=== PATIENT | female | born 1960 | race Caucasian/White ===

== ENCOUNTER 2017-05-12 15:45 | Inpatient (IN) ==
[2017-05-12] MEDS ORDERED: SALINE FLUSH 10ml SYRINGE IVF PRN (17:55)
[2017-05-12] MEDS ORDERED: FentaNYL 100 MCG/2 ML INJECTION IVP PRN (17:55)
[2017-05-12] MEDS ORDERED: ONDANSETRON 4 MG/2 ML INJECTION IVP ONE (17:55)
--- OUTSIDE RECORDS SUMMARY | 2017-05-12 18:17 | External Medical Summary ---
:1960 Author Organization [employer] Care Team Providers Name Role Phone Kaden Hernandez Provider Role Unavailable Allergies No Known Allergies Problems Problem Type Condition Code Onset Dates Condition Status Problem Bipolar disorder, unspecified F31.9 Active Problem Post-traumatic stress disorder, F43.12 Active chronic Problem Type 2 diabetes mellitus without E11.9 Active complications Problem Essential (primary) hypertension I10 Active Problem Hyperlipidemia, unspecified E78.5 Active Problem Mixed hyperlipidemia 272.2 Active Problem COPD 496 Active Problem Gastro-esophageal reflux disease K21.9 Active without esophagitis Problem Chronic obstructive pulmonary J44.9 Active disease, unspecified Medications Medication Code System Code Instructions Start Date End Date Status Dosage [facility] [id number] 10-325 MG Orally Mar 10, 1-2 tablet 5-00 every 6 hrs, 2015 as needed Results No Known Results Summary Purpose eClinicalWorks Submission
--- NOTE | 2017-05-12 18:20 | Emergency Department Report ---
General Adult HPI - General Chief complaint: Abdominal Pain Stated complaint: Severe abd pain, pain when going to bathroom Time Seen by Provider: 05/12/17 17:53 Source: patient Mode of arrival: ambulatory Limitations: no limitations - History of Present Illness HPI narrative: 57-year-old female presents to the emergency department with a chief complaint of left adnexal pain. Patient has been having discomfort in the left adnexal region for the past 2 weeks. She was found to have a large ovarian cyst at that time. She is scheduled to have removal of the cyst this coming week with Dr. mesa. She states that her pain increased dramatically last night. She denies any trauma, travel, poorly prepared food, recent antibiotic use. She describes her pain as severe. Pain is sharp. No radiation. She does not note any exacerbating or remitting factors. No other complaints or associated symptoms. She was at home when her symptoms began. Symptoms have been persistent in nature since onset. She was referred to the emergency department by Dr. Mesa to rule out ovarian torsion. - Related Data Home Medications Medication Instructions Recorded Confirmed Gabapentin 600 mg PO BID #0 05/30/14 05/12/17 Lamictal (lamotrigine) 100 mg 200 mg PO HS tab 11/26/16 05/12/17 tablet aspirin 81 mg tablet,delayed 81 mg PO DAILY tab 12/23/16 05/12/17 release Acetaminophen [Tylenol Arthritis] 650 mg PO PRN 04/09/17 05/12/17 BuPROPion SR [Wellbutrin Sr] 200 mg PO HS 04/09/17 05/12/17 Buspirone [Buspar] 10 mg PO BID 04/09/17 05/12/17 Citalopram [Celexa] 40 mg PO DAILY 04/09/17 05/12/17 Docusate Sodium 100 mg PO DAILY 04/09/17 05/12/17 Esomeprazole [NEXIUM 20 mg Capsule] 20 mg PO DAILY 04/09/17 05/12/17 Ferrous Sulfate 325 mg PO DAILY 04/09/17 05/12/17 Loratadine [Claritin] 10 mg PO DAILY 04/09/17 05/12/17 Hydrocodone/APAP 10/325 [[place] 1 tab PO TID PRN 04/24/17 05/12/17 10/325] Oxycodone/Acetaminophen 5/325 1 tab PO Q4H PRN 05/12/17 05/12/17 [Percocet 5/325] Previous Rx's Medication Instructions Recorded Glucophage (metformin) 1,000 mg 1,000 mg PO BID #60 tab 11/08/16 tablet Klor-Con Sprinkle (potassium 10 meq PO DAILY #90 cap 12/15/16 chloride ER) 10 mEq capsule Lasix (Furosemide) 40 mg tablet 40 mg PO QAM #90 tab 12/15/16 amitriptyline 50 mg tablet 50 mg PO HS #30 tab 12/15/16 Lipitor (atorvastatin) 20 mg tablet 20 mg PO HS #30 tab 03/11/17 Benzonatate [Tessalon Perles] 200 mg PO Q8H PRN #24 cap 04/24/17 Allergies Allergy/AdvReac Type Severity Reaction Status Date / Time peach Allergy Intermediate Hives Verified 05/12/17 16:53 cephalexin Allergy Unknown Verified 05/12/17 16:53 morphine Allergy Unknown Hives Verified 05/13/17 10:17 Penicillins Allergy Unknown Verified 05/12/17 16:53 Review of Systems Constitutional: Denies: fever, chills Eyes: Denies: eye pain, vision change ENT: Denies: ear pain, throat pain Cardiovascular: Denies: chest pain, palpitations Respiratory: Denies: cough, dyspnea Gastrointestinal: Reports: abdominal pain. Denies: nausea, vomiting, diarrhea Genitourinary: Denies: urgency, dysuria Musculoskeletal: Denies: back pain, arthralgia Integumentary: Denies: erythema, rash Neurological: Denies: headache, numbness Psychiatric: Denies: anxiety, depression Endocrine: Denies: fatigue, heat or cold intolerance Hematological/Lymphatic: Denies: easy bruising, lymphadenopathy Allergic/Immunologic: Denies: facial swelling, urticaria PFSH Patient Stated Medical History Migraine Yes Valvular Heart Disease Yes Bronchitis Yes Chronic Obstructive Pulmonary Yes Disease (COPD) Diabetes Mellitus Type 2 Yes Hx Kidney Stones Yes Hx Urinary Tract Infection Yes Osteoarthritis Yes Depression Yes Polycystic Ovarian Syndrome Yes Post Menopausal No Now No Clinic Medical History (Last Reviewed 10/14/16 @ 10:29 by KYLE Shepard) PCOS (polycystic ovarian syndrome) (Acute Medical) Allergic rhinitis (Chronic Medical) Anxiety (Chronic Medical) Bipolar disorder (Chronic Medical) COPD (chronic obstructive pulmonary disease) (Chronic Medical) Depression (Chronic Medical) Diabetes (Chronic Medical) Dyslipidemia (Chronic Medical) High cholesterol (Chronic Medical) Iron deficiency anemia (Chronic Medical) Leg edema (Chronic Medical) Migraines (Chronic Medical) Mitral valve prolapse (Chronic Medical) Neuropathy (Chronic Medical) PTSD (post-traumatic stress disorder) (Chronic Medical) Vitamin B12 deficiency (Chronic Medical) Surgical History: *1982 Tubal Ligation. *1984 Medioscopey. *2004 left shoulder surgery (torn rotator cuff, chip bone). *2013 righ knee Surgery(bone chipm removed arthritis). *06/12/2016 Laparoscopic Appendectomy. *[place] Teeth Extraction Family History: Family History (Last Reviewed 10/14/16 @ 10:30 by KYLE Shepard) Maternal Grandmother Aneurysm Arthritis Stroke DVT (deep venous thrombosis) blood clots Maternal Grandfather COPD (chronic obstructive pulmonary disease) Heart attack Paternal Grandfather Arthritis Heart failure Mother High blood pressure Sister Diabetes Dementia Sister Heart attack - Social History Smoking status: Never smoker second hand exposure: Yes Substance use type: does not use Alcohol intake: current Alcohol intake frequency: a few times a month Household members: spouse Current occupational status: employed Physical Exam - Limitations Limitations: no limitations - General General appearance: alert, in no apparent distress - Normal Exams: Head:: Normocephalic without trauma Eyes:: Pupils are PERRLA w/ EOMI, No scleral icterus, irritation, or foreign bodies noted ENMT:: No facial trauma, nasal exudates, pharyngeal erythema, or exudates are noted Dental: No fractured, loose, or missing teeth noted Neck:: Full range of motion, without adenopathy, JVD, bruits or thyromegaly Chest/Respirations:: Clear all lopez, with good airflow, and symmetry bilaterally Cardiovascular:: Regular rate and rhythm, without murmur or gallop, Pulses 2+ all extremities, capillary refill, <2 seconds all extremities Abdomen:: Bowel sounds positive (is tender over the left adnexal region.), soft , non-tender (patient refused to undergo pelvic exam/vaginal swab collection for STD analysis.), non-distended, no hepatosplenomegaly, masses or bruits noted Lymphatic:: No lymphadenopathy, or lymphedema noted Musculoskeletal:: No tenderness, or deformity noted, good range of motion, all extremities Integumentary:: No rashes, hives, or bruising noted, hair and nails, without abnormality Neurological:: Patient is alert, and oriented, cranial nerves, motor/sensory/ cerebellar, exams w/o gross deficits, to observation Psychiatric:: Patient exhibits, appropriate attention, emotion and affect Course Vital Signs Temperature 98.2 F 05/12/17 15:50 Pulse Rate 112 H 05/12/17 15:50 Respiratory Rate 20 05/12/17 15:50 Blood Pressure 131/75 05/12/17 15:50 Pulse Oximetry 99 05/12/17 15:50 Temperature 98.4 F 05/13/17 10:02 Pulse Rate 82 05/13/17 13:15 Respiratory Rate 15 05/13/17 10:02 Blood Pressure 135/46 05/13/17 13:15 Pulse Oximetry 98 05/13/17 13:15 Medical Decision Making - [facility] Narrative Medical decision making narrative: Labs/imaging were discussed in detail with the patient and family and questions are answered. Patient is given gentle IV hydration. She is given parental narcotic and antiemetic medications intravenously with improvement of symptoms. Imaging is reviewed with Dr. Mesa who recommends admission to his service and he will take the patient to the operating room as ovarian torsion cannot be excluded. Dr. mesa recommends no antibiotic therapy at this time. Patient is admitted to the service of Dr. mesa in improved condition. She is in agreement with the current plan of management. No further orders from accepting physician is in agreement with the current plan of management. She refused to undergo pelvic examination and vaginal swab collection for STD analysis in the emergency department. - Differential Diagnosis ovarian cyst, ovarian torsion, ovarian mass, UTI - Lab Data Result diagrams: 05/13/17 10:15 05/12/17 18:31 Lab Results 05/12/17 05/12/17 05/12/17 Range/Units 18:31 18:31 18:31 WBC 17.7 H (4.5-11.0) T/MM3 RBC 4.00 (4.00-5.20) M/MM3 Hgb 11.1 L (12-16) GM/DL Hct 35.5 L (36-46) % MCV 88.8 (80-100) UM3 MCH 27.8 (26-34) UUG MCHC 31.3 (31-37) GM/DL RDW Std Deviation 46.9 (36.9-50.2) FL Plt Count 291 (130-400) T/MM3 MPV 10.5 (9.4-12.4) UM3 Immature Gran % (Auto) Not performed Neut % (Auto) Not performed Lymph % (Auto) Not performed [place] % (Auto) Not performed Eos % (Auto) Not performed Baso % (Auto) Not performed Neut # (Auto) Not performed Lymph # (Auto) Not performed [place] # (Auto) Not performed Eos # (Auto) Not performed Baso # (Auto) Not performed Abs Immat Gran (auto) Not performed Neutrophils % (Manual) 89.0 H (33-66) % Lymphocytes % (Manual) 5.0 L (23-45) % Monocytes % (Manual) 6.0 (0-9.0) % Neutrophils # (Manual) 15.8 H (1.8-7.7) T/MM3 Lymphocytes # (Manual) 0.9 L (1-4.8) T/MM3 Monocytes # (Manual) 1.1 H (0-0.8) T/MM3 RBC Morph Comment Normal Turbidity < 20 (0-20) Sodium 141 (134-144) MEQ/L Potassium 4.2 (3.6-5) MEQ/L Chloride 101 (98-107) MEQ/L Carbon Dioxide 28 (22-30) MEQ/L Anion Gap 12 (5-15) MEQ/L BUN 16.0 (7-17) MG/DL Creatinine 1.1 (0.7-1.2) MG/DL GFR Calculation 51 BUN/Creatinine Ratio 15 (6-26) RATIO Glucose 111 H (65-110) MG/DL Calculated Osmolality 273 (261-280) MOSM/KG Calcium 8.7 (8.4-10.2) MG/DL Total Bilirubin 1.50 H (0.20-1.30) MG/DL Icterus Index < 2 (0-7) AST 33 (14-36) U/L ALT 50 (9-52) U/L Alkaline Phosphatase 110 (38-126) U/L Total Protein 7.1 (6.3-8.2) G/DL Albumin 4.2 (3.5-5.0) G/DL Globulin 2.9 (2.4-3.6) G/DL Albumin/Globulin Ratio 1.4 (1.1-2.2) RATIO Lipase 49 (23-300) U/L Specimen Hemolysis < 15 (0-25) Ur Collection Type Cancelled Urine Color Cancelled Urine Clarity Cancelled Urine pH Cancelled Ur Specific [place] Cancelled Urine Protein Cancelled Urine Glucose (UA) Cancelled Urine Ketones Cancelled Urine Occult Blood Cancelled Urine Nitrate Cancelled Urine Bilirubin Cancelled Urine Urobilinogen Cancelled Ur Leukocyte Esterase Cancelled Urinalysis Comment Cancelled Disposition Clinical Impression: Ovarian mass Disposition: 02 To [facility] Acute Care Condition: Stable Time of Disposition: 18:45 (Admit. Dr. Mesa. ) - Seen By: physician
[2017-05-12] MEDS: NS 1,000 ML IV SCH ×2 (18:33→22:24)
[2017-05-12] MEDS ORDERED: FentaNYL 100 MCG/2 ML INJECTION IVP ONE ×2 (19:22→20:55)
[2017-05-12 19:57] VITALS: BMI 36.2
[2017-05-12] MEDS: FentaNYL 100 MCG/2 ML INJECTION IVP PRN (22:52)
[2017-05-13] MEDS: FentaNYL 100 MCG/2 ML INJECTION IVP PRN (02:09)
[2017-05-13] MEDS ORDERED: PROPOFOL 20 ML ONE (03:17)
[2017-05-13] MEDS ORDERED: ROCURONIUM 50 MG/5 ML INJECTION IVP ONE ×2 (03:17→06:26)
[2017-05-13] MEDS ORDERED: SUCCINYLCHOLINE 20mg/mL 10mL INJECTION ONE (03:17)
[2017-05-13] MEDS ORDERED: MIDAZOLAM 2mg/2ml INJECTION ONE (03:19)
[2017-05-13] MEDS ORDERED: FentaNYL 250 MCG/5 ML INJECTION ONE (03:19)
--- NOTE | 2017-05-13 03:40 | Anesthesia Preoperative Report ---
Anesthesia Preoperative Record - Date and Time Date: 05/13/17 Preoperative Diagnosis: R/O ovarian Torsion Proposed Procedure: diagnostic lap NPO Since Date: 05/12/17 NPO Since Time: 15:00 Allergies/Adverse Reactions: Allergies Allergy/AdvReac Type Severity Reaction Status Date / Time peach Allergy Intermediate Hives Verified 05/12/17 16:53 cephalexin Allergy Unknown Verified 05/12/17 16:53 morphine Allergy Unknown Verified 05/12/17 16:53 Penicillins Allergy Unknown Verified 05/12/17 16:53 - Vital Signs Vital Signs: Temperature 97.6 F 05/12/17 23:33 Pulse Rate 81 05/12/17 23:33 Respiratory Rate 16 05/12/17 23:33 Blood Pressure 107/54 05/12/17 23:33 Pulse Oximetry 98 05/12/17 23:33 Height and Weight: Height 5 ft 5 in Weight 98.8 kg Body Mass Index 36.2 - Medications Inpatient Medications: Current Medications Fentanyl (Fentanyl) 50 mcg IVP O PRN Last Admin: 05/12/17 18:36 Dose: 50 mcg Fentanyl (Fentanyl) 50 mcg IVP O ONE Stop: 05/12/17 20:56 Last Admin: 05/12/17 21:04 Dose: 50 mcg Fentanyl (Fentanyl) 50 mcg IVP Q2HR PRN PRN Reason: Pain Last Admin: 05/13/17 02:09 Dose: 50 mcg Sodium Chloride (Normal Saline) 1,000 mls @ 150 mls/hr IV .Q6H40M NIEVES Last Admin: 05/12/17 22:24 Dose: 150 mls/hr Sodium Chloride (Iv Flush) 10 - 80 ml IVF PRN PRN PRN Reason: Flushing Last Admin: 05/12/17 18:39 Dose: 10 ml Home Medications: Home Medications Medication Instructions Recorded Confirmed Type Gabapentin 600 mg PO BID #0 05/30/14 05/12/17 History Glucophage (metformin) 1,000 mg 1,000 mg PO BID #60 tab 11/08/16 05/12/17 Rx tablet Lamictal (lamotrigine) 100 mg 200 mg PO HS tab 11/26/16 05/12/17 History tablet Klor-Con Sprinkle (potassium 10 meq PO DAILY #90 cap 12/15/16 05/12/17 Rx chloride ER) 10 mEq capsule Lasix (Furosemide) 40 mg tablet 40 mg PO QAM #90 tab 12/15/16 05/12/17 Rx amitriptyline 50 mg tablet 50 mg PO HS #30 tab 12/15/16 05/12/17 Rx aspirin 81 mg tablet,delayed 81 mg PO DAILY tab 12/23/16 05/12/17 History release Lipitor (atorvastatin) 20 mg tablet 20 mg PO HS #30 tab 03/11/17 05/12/17 Rx Acetaminophen [Tylenol Arthritis] 650 mg PO PRN 04/09/17 05/12/17 History BuPROPion SR [Wellbutrin Sr] 200 mg PO HS 04/09/17 05/12/17 History Buspirone [Buspar] 10 mg PO BID 04/09/17 05/12/17 History Citalopram [Celexa] 40 mg PO DAILY 04/09/17 05/12/17 History Docusate Sodium 100 mg PO DAILY 04/09/17 05/12/17 History Esomeprazole [NEXIUM 20 mg Capsule] 20 mg PO DAILY 04/09/17 05/12/17 History Ferrous Sulfate 325 mg PO DAILY 04/09/17 05/12/17 History Loratadine [Claritin] 10 mg PO DAILY 04/09/17 05/12/17 History Benzonatate [Tessalon Perles] 200 mg PO Q8H PRN #24 cap 04/24/17 05/12/17 Rx Hydrocodone/APAP 10/325 [[place] 1 tab PO TID PRN 04/24/17 05/12/17 History 10/325] Oxycodone/Acetaminophen 5/325 1 tab PO Q4H PRN 05/12/17 05/12/17 History [Percocet 5/325] Is Patient on Beta Emma?: No - Medical History Respiratory: Reports: Bronchitis, Chronic Obstructive Pulmonary Disease (COPD) ( denies SOB at this time) DENIES: Sleep Apnea Cardiovascular: Reports: Valvular Heart Disease (MVP. asymptomatic) DENIES: Angina Gastrointestional: Reports: Gastroesophageal Reflux Disease (well controlled), Morbid Obesity Neuro/Musculoskeletal: Reports: HX.MS.OSAR, Depression Renal/Endocrine: Reports: Diabetes Mellitus Type 2 Other History: DENIES: Now - Surgical History GI Surgery/Treatments: Reports: Appendectomy Musculoskeletal Surgery/Tx: Reports: Knee Arthroscopy, Shoulder Arthroscopy ( LEFT) Reproductive Surgery/Treatment: Reports: Tubal Ligation Anesthesia Reactions: None Hx Family Anesthesia Reaction: No History of Motion Sickness: No - Social History Smoking Status: Never smoker Second Hand Exposure: Yes Substance Use Type: does not use Alcohol Intake: current Alcohol Intake Frequency: a few times a month - Physical Exam Respiratory Exam: Present: lungs clear, bilateral breath sounds equal Cardiovascular Exam: Present: regular rate and rhythm - Airway Assessment Mallampati Score: III TMD: 3 Fingerbreadths Neck Extension: fair Overall Assessment: no airway concerns - ASA ASA Score: 3 - Plan Anesthesia: General Inhalation Gases - Discussion Discussion: Discussed risks/options/alternatives of anesthesia and questions answered. Patient consents. Nursing pain assessment noted. Present for Discussion: spouse Attestation Statement: Prior to the delivery of any anesthetic medication, I examined the patient, developed the plan, obtained the patient's consent and discussed the risk and benefits of the procedure with the patient/guardian. - Additional Information Seen by Anesthesia: Yes
[2017-05-13] MEDS: LR 1,000 ML IV SCH ×6 (04:00→18:04)
[2017-05-13] MEDS ORDERED: SALINE FLUSH 10ml SYRINGE ONE ×2 (04:16→06:11)
[2017-05-13] MEDS ORDERED: PHENYLEPHRINE INJ 10 MG/ML VIAL IV ONE (04:16)
[2017-05-13] MEDS ORDERED: EPHEDRINE 50mg/ml INJECTION ONE (05:05)
[2017-05-13] MEDS ORDERED: TRANEXAMIC ACID 1,000 MG in NS 100 ML IV ONE (05:43)
[2017-05-13] MEDS: NS 1,000 ML IV SCH ×2 (05:45→10:57)
[2017-05-13] MEDS ORDERED: CEFAZOLIN 1 G INJECTION ONE (06:23)
[2017-05-13] MEDS ORDERED: CLINDAMYCIN PB 900 MG/50 ML BAG IV SCH (06:30)
[2017-05-13] MEDS ORDERED: FentaNYL 100 MCG/2 ML INJECTION IVP PRN ×2 (06:45→10:32)
[2017-05-13] MEDS ORDERED: SUGAMMADEX 200mg/2ml INJECTION IVP ONE (07:46)
[2017-05-13] MEDS ORDERED: ONDANSETRON 4 MG/2 ML INJECTION ONE (07:47)
[2017-05-13] MEDS ORDERED: DEXAMETHASONE 4 MG/ML INJECTION ONE (07:47)
[2017-05-13] MEDS ORDERED: HYDROMORPHONE 2 MG/ML INJECTION IVP PRN (07:55)
--- NOTE | 2017-05-13 08:14 | Ultrasound Report ---
Indication: pelvic pain PROCEDURE: US pelvic complete: Encounter: Initial Comparison: May 10, 2017 FINDINGS: Transabdominal pelvic imaging was performed. The uterus measures 7.9 x 4.7 x 4 cm. The parenchyma again shows a small fibroid. The endometrial stripe measures 5 mm in thickness. There is no evidence of focal endometrial mass. Enlarging left ovarian mass present measuring 7.5 x 7.4 x 8.5 cm in size. This previously measured 6.4 cm in maximal diameter. There is minimal Doppler flow present to the left ovary. The right ovary appears normal and measures 2.2 x 2.1 x 2 cm in size. IMPRESSION: Enlarging left ovarian mass could represent a torsed ovary with internal hemorrhage, endometrioma with hemorrhage, ovarian abscess or hemorrhagic neoplasm. Again surgical excision is recommended. There is a preliminary report by [facility]. .
[2017-05-13] MEDS ORDERED: ONDANSETRON 4 MG/2 ML INJECTION IVP PRN (08:30)
[2017-05-13] MEDS ORDERED: METOCLOPRAMIDE 10mg/2ml INJECTION IVP PRN (08:30)
[2017-05-13] MEDS ORDERED: MORPHINE SULFATE 4mg INJECTION IVP PRN (08:30)
--- NOTE | 2017-05-13 09:00 | OB/GYN Procedure Note ---
FRAME FIXER Operative Note Date of Operation: 05/13/17 Preoperative Diagnosis: Ovarian Cyst Comments: Ovarian torsion Postmenopausal thickened endometrium Postoperative Diagnosis: Same as Preoperative FRAME FIXER Procedure: Dx Laparoscopy, Hysteroscopy with D&C Oopherectomy: LSO Comments: Laparotomy Surgeon: Enoch Rhodes DO Supervisory Examiner: Carissa Potter MD Anesthesia Provider: Pepe Mcdaniel CRNA Anesthesia Type: General Estimated Blood Loss:: 1200
--- NOTE | 2017-05-13 09:38 | Anesthesia Postoperative Note ---
- Date and Time Date: 05/13/17 Time: 09:38 - Status Patient Participated in Evaluation: Patient Participated in Person Vital Signs: Temperature 98.4 F 05/13/17 09:25 Pulse Rate 102 H 05/13/17 09:25 Respiratory Rate 22 05/13/17 09:25 Blood Pressure 109/56 05/13/17 09:25 Pulse Oximetry 96 05/13/17 09:25 Respiratory Function: Airway Patent Cardiovascular Function: Regular Pulse EKG: Sinus Rhythm Mental Status: Alert and Oriented Pain Intensity: 3 Hydration: IV Infusing Complications During Recover: None Apparent - Follow-Up Instructions Instructions: Per Surgeon
[2017-05-13] MEDS: SIMETHICONE 80 MG CHEWABLE TABLET PO SCH ×4 (10:33→21:07)
[2017-05-13] MEDS: Oxycodone/Acetaminophen 5/325 1 TAB PO PRN ×4 (12:57→21:12)
[2017-05-13] MEDS ORDERED: BENZONATATE 200 MG CAPSULE PO PRN (16:33)
[2017-05-13] MEDS: METFORMIN 1,000 MG TABLET PO SCH (18:04)
[2017-05-13] MEDS: BUSPIRONE 10 MG TABLET PO SCH (21:07)
[2017-05-13] MEDS: BUPROPION 100 MG PO SCH (21:07)
[2017-05-13] MEDS: GABAPENTIN 300 MG CAPSULE PO SCH (21:08)
[2017-05-13] MEDS: AMITRIPTYLINE 50 MG TABLET PO SCH (21:08)
[2017-05-13] MEDS: ATORVASTATIN 20 MG TABLET PO SCH (21:11)
[2017-05-14] MEDS: LR 1,000 ML IV SCH ×3 (00:29→09:35)
[2017-05-14] MEDS: PANTOPRAZOLE 20 MG TABLET PO SCH (06:00)
[2017-05-14] MEDS: METFORMIN 1,000 MG TABLET PO SCH ×2 (09:35→17:07)
[2017-05-14] MEDS: CITALOPRAM 40 MG TABLET PO SCH (09:35)
[2017-05-14] MEDS: SIMETHICONE 80 MG CHEWABLE TABLET PO SCH ×4 (09:35→20:57)
[2017-05-14] MEDS: FERROUS SULFATE 324 MG TABLET PO SCH (09:35)
[2017-05-14] MEDS: BUSPIRONE 10 MG TABLET PO SCH ×2 (09:35→20:59)
[2017-05-14] MEDS: DOCUSATE SODIUM 100 MG CAPSULE PO SCH (09:36)
[2017-05-14] MEDS: GABAPENTIN 300 MG CAPSULE PO SCH ×2 (09:36→20:57)
--- NOTE | 2017-05-14 10:13 | OB/GYN Progress Note ---
LOG SCALER Post Op Progress Note - General POD:: POD1 Pain: controlled Pain: Her preop pain has resolved. Voiding: voiding Nausea or Vomiting: No Ambulating: Yes Subjective Comments: Passing flatus. - Objective Vital Signs: Vital Signs Temp 96.8 F 05/14/17 08:00 Pulse 97 05/14/17 08:00 Resp 16 05/14/17 08:00 BP 115/59 05/14/17 08:00 Pulse Ox 89 L 05/14/17 08:00 Urine Output: good General: alert and oriented Abdomen: soft Abdomen: Mildly distended. Incision: clean, no erythema, dry, intact Extremities: non-tender Laboratory Results: 05/13/17 10:15 05/12/17 18:31 Labs: UA Ur Collection Type Urine, void-cc/notcc 05/13/17 11:09 Urine Color Yellow (YELLOW) 05/13/17 11:09 Urine pH 6.5 (5.0-8.0) 05/13/17 11:09 Ur Specific [place] 1.025 (1.015-1.025) 05/13/17 11:09 Urine Protein Trace (NEGATIVE) A 05/13/17 11:09 Urine Glucose (UA) Negative (NEGATIVE) 05/13/17 11:09 Urine Ketones Trace (NEGATIVE) A 05/13/17 11:09 Urine Occult Blood 1+ (NEGATIVE) A 05/13/17 11:09 Urine Nitrate Negative (NEGATIVE) 05/13/17 11:09 Urine Bilirubin 1+ (NEGATIVE) A 05/13/17 11:09 Urine Urobilinogen 1.0 EU/DL (NORMAL) 05/13/17 11:09 Ur Leukocyte Esterase Negative (NEGATIVE) 05/13/17 11:09 - Assessment and Plan s/p Laparotomy and LSO. Advance diet. SL IV May shower. Hopefully home tomorrow.
[2017-05-14] MEDS: Oxycodone/Acetaminophen 5/325 1 TAB PO PRN ×2 (13:19→17:04)
[2017-05-14] MEDS: AMITRIPTYLINE 50 MG TABLET PO SCH (20:57)
[2017-05-14] MEDS: BUPROPION 100 MG PO SCH (20:57)
[2017-05-14] MEDS: ATORVASTATIN 20 MG TABLET PO SCH (20:57)
[2017-05-14 23:34] VITALS: RESP 20
[2017-05-15] MEDS: PANTOPRAZOLE 20 MG TABLET PO SCH (05:33)
[2017-05-15 08:12] VITALS: BP 115/62; PULSE 91; TEMP 97.3; O2SAT 91
[2017-05-15] MEDS: DOCUSATE SODIUM 100 MG CAPSULE PO SCH (08:24)
[2017-05-15] MEDS: METFORMIN 1,000 MG TABLET PO SCH (08:25)
[2017-05-15] MEDS: FERROUS SULFATE 324 MG TABLET PO SCH (08:25)
[2017-05-15] MEDS: CITALOPRAM 40 MG TABLET PO SCH (08:25)
[2017-05-15] MEDS: GABAPENTIN 300 MG CAPSULE PO SCH (08:25)
[2017-05-15] MEDS: BUSPIRONE 10 MG TABLET PO SCH (08:26)
[2017-05-15] MEDS: Oxycodone/Acetaminophen 5/325 1 TAB PO PRN (08:30)
[2017-05-15] MEDS: SIMETHICONE 80 MG CHEWABLE TABLET PO SCH (10:06)
--- NOTE | 2017-05-15 10:12 | OB/GYN Progress Note ---
TAIL TRIMMER Post Op Progress Note - General POD:: POD2 Pain: controlled Voiding: voiding Nausea or Vomiting: No (Tolerating regular diet.) Ambulating: Yes Subjective Comments: Passing flatus. Desires dismissal. - Objective Vital Signs: Vital Signs Temp 97.3 F 05/15/17 08:00 Pulse 91 05/15/17 08:00 Resp 20 05/15/17 08:00 BP 115/62 05/15/17 08:00 Pulse Ox 91 05/15/17 08:00 Urine Output: good General: alert and oriented Abdomen: soft, non-distended Incision: normal, clean, dry, intact Extremities: non-tender Laboratory Results: 05/13/17 10:15 05/12/17 18:31 Labs: UA Ur Collection Type Urine, void-cc/notcc 05/13/17 11:09 Urine Color Yellow (YELLOW) 05/13/17 11:09 Urine pH 6.5 (5.0-8.0) 05/13/17 11:09 Ur Specific [place] 1.025 (1.015-1.025) 05/13/17 11:09 Urine Protein Trace (NEGATIVE) A 05/13/17 11:09 Urine Glucose (UA) Negative (NEGATIVE) 05/13/17 11:09 Urine Ketones Trace (NEGATIVE) A 05/13/17 11:09 Urine Occult Blood 1+ (NEGATIVE) A 05/13/17 11:09 Urine Nitrate Negative (NEGATIVE) 05/13/17 11:09 Urine Bilirubin 1+ (NEGATIVE) A 05/13/17 11:09 Urine Urobilinogen 1.0 EU/DL (NORMAL) 05/13/17 11:09 Ur Leukocyte Esterase Negative (NEGATIVE) 05/13/17 11:09 - Assessment and Plan S/P laparotomy and LSO. Dismiss. Return to office in 1-3 days for staple removal.
--- NOTE | 2017-05-16 08:39 | Operative Note ---
DATE OF OPERATION 05/13/2017 SURGEON Jose Solano MD PREOPERATIVE DIAGNOSES 1. Ovarian cyst with torsion 2. Possible bowel or mesenteric injury. POSTOPERATIVE DIAGNOSES 1. Ovarian cyst with torsion 2. No evidence of bowel injury of the redundant sigmoid colon. 3. No evidence of vascular compromise of the mesentery of the sigmoid colon. PROCEDURE Exploratory laparotomy. ANESTHESIA General ASA CLASS 3 INDICATIONS The patient is a 57-year-old female who had been taken to the operating room for a complex ovarian cyst with portion by Dr. Rhodes. He had converted to an open procedure via a Pfannenstiel incision. Please see his separate operative note for details. I was called to the operating room to investigate the bowel in the region of the complex dissection as well as the mesentery in the region of the sigmoid colon. FINDINGS The sigmoid colon was very redundant. The actual lumen of the bowel was well away from the region of dissection of the left ovary. The base of the sigmoid mesentery did have some compromise of the peritoneum. There were prior suture ligatures in this area but no evidence of bleeding. There was no evidence of compromise of the bowel. There was inflammation of the peritoneum of the epiploic appendages of the sigmoid colon that had extended into the area of the cyst. There was additional clot along the left paracolic gutter but no evidence of active hemorrhage. DESCRIPTION OF PROCEDURE Upon entry to the operating room, the patient was already asleep with an open abdominal cavity via a Pfannenstiel incision with a self-retaining retractor in position. After discussion of the case with Dr. Rhodes, I proceeded to explore the pelvis and left lower quadrant. The Bookwalter retractor was adjusted to alter exposure to help track the course of the sigmoid colon. Some inflammatory adhesions of the epiploic appendages were divided to help mobilize the sigmoid colon. Once the colon was able to be manipulated, it was tracked from the left abdomen down to the anterior rectum in the cul-de-sac. There was no evidence of injury on inspection of the bowel. At the base of the long mesentery of the sigmoid colon, there was some compromise of the peritoneum with some suture ligatures in place. This area was inspected and was found to be hemostatic. There was no evidence of mesenteric hematoma and no evidence of bowel compromise from a vascular standpoint. The area was evacuated of clot and additional ovarian tissue. The pelvis and left lower quadrant were then irrigated copiously with saline and suctioned free of fluid. Additional retraction and inspection within the pelvis was performed to assure there was no other evidence of injury. When it was felt that the bowel and mesentery were without significant problem, the case was turned back over to Dr. Rhodes for closure. Please see his operative note for additional details. JACQUELYN
--- NOTE | 2017-05-16 09:32 | Operative Note ---
DATE OF OPERATION 05/13/2017 PREOPERATIVE DIAGNOSES 1. Complex adnexal mass. 2. Acute onset severe left lower quadrant pain. 3. Suspected ovarian torsion. 4. Postmenopausal thickened endometrium on ultrasound. POSTOPERATIVE DIAGNOSES 1. Complex left adnexal mass. 2. Ovarian torsion. 3. Postmenopausal thickened endometrium. 4. Abdominopelvic adhesions. 5. Acute blood loss anemia. PROCEDURE 1. Diagnostic laparoscopy. 2. Lysis of adhesions. 3. Conversion to laparotomy. 4. Left salpingo-oophorectomy. 5. Hysteroscopy, D&C. SURGEON Enoch Rhodes DO [employer] Carissa Potter MD INTRAOPERATIVE CONSULT Jose Solano MD, General Surgeon ESTIMATED BLOOD LOSS 1200 mL SPECIMENS 1. Left adnexal mass including ovary and fallopian tube. 2. Endometrial curettings. COMPLICATIONS 1. Acute blood loss anemia secondary to surgical procedure with blood loss of 1200 mL. 2. Conversion from laparoscopy to laparotomy in order to complete the surgical procedure. INDICATION FOR PROCEDURE This is a 57-year-old female who originally presented to the office with thickened endometrium noted on ultrasound and a 6 cm complex ovarian cyst. Patient had a normal CA-125 and at that time, discussion of expectant versus surgical management was discussed with the patient. Recommendations for surgical management secondary to size of mass and thickened endometrium. I discussed with the patient at this time the risks, benefits and alternatives to procedure including infection, injury to bowel or bladder, bleeding with the need for transfusion, need for a larger incision or second operation. We discussed that the cyst could be benign neoplasm versus borderline or malignant neoplasm. Patient was originally scheduled for surgery on May 17 but presented to the emergency room with acute onset of pain not controlled by narcotics. Ultrasound of the cyst at this time had shown interval growth of approximately 2 cm and increasing in complexity which was suspicious for vascular congestion secondary to ovarian torsion. At this time, decision was made to proceed with surgical management secondary to acute abdomen. DESCRIPTION OF PROCEDURE Patient was taken to the operating room where general endotracheal anesthesia was obtained without difficulty. She was then prepped and draped in the dorsal lithotomy position in a normal sterile fashion. Bimanual exam under anesthesia was limited secondary to body habitus. At this time, a single weighted speculum was placed in the posterior vagina. [place] retractor was used to visualize the anterior lip of the cervix which was grasped with a single-tooth tenaculum. The uterus was then sounded to approximately 8 cm and a #17 Omalley dilator was introduced into the cervix and uterus and taped to the single tooth tenaculum to use as a uterine manipulator. Surgeon was re-gloved and attention was turned to the abdomen. 3 mL of local anesthetic was injected approximately 1 cm above the umbilicus where her previous incision had been for cholecystectomy. At this time, a 5 mm incision was made and the Veress needle was introduced into the abdomen and the abdomen was insufflated with 15 mmHg. A 5 mm trocar was then placed into the abdomen and the camera was inserted. Patient was placed in slight Trendelenburg. There was limited visualization of the pelvis secondary to adhesions as noted. At this time, local anesthetic was inserted into the right lower quadrant and a 5 mm incision was made. A 5 mm trocar was then placed into the abdomen under direct visualization. There was omental adhesions to the anterior abdominal wall which were taken down with a Pean grasper bluntly without difficulty. At this time, a large necrosed and friable mass could be seen in the left adnexa. 3 mL of local anesthetic were then placed in the midline suprapubically and a 5 mm incision was made and a 5 mm trocar was inserted under direct visualization. The blunt probe was then inserted into this port in an attempt to manipulate the mass out of the pelvis was performed. The mass was necrotic and friable and touching the mass did not result in movement but simply just separation of the necrotic mass. At this time, decision was made by the surgeon that the case could not be completed laparoscopically and the suprapubic incision was extended in a Pfannenstiel fashion with a scalpel. The underlying layers of the tissues were taken down to the layer of the fascia. The fascia was then incised in the midline and the fascial incision was extended laterally with the Calles scissors. The superior aspect of the fascial incision was grasped with a Ying clamp, elevated and the rectus muscles dissected off sharply with the Calles scissors. Attention was turned to the inferior aspect of the fascial incision which was grasped with a Ying clamp, elevated and the rectus muscles dissected off sharply. The rectus muscles were in the midline bluntly. The peritoneum was then grasped with a Korina clamp, elevated and entered sharply with the Metzenbaum scissors. The peritoneal incision was then extended superiorly and inferiorly with good visualization of the bladder at this time. The Harris O retractor was placed, the bowel was able to be packed superiorly into the pelvis. Some of the necrotic tissue was removed and collected as specimen. Significant adhesions along the sigmoid colon and omentum were noted. A round ligament on the uterus on the left side was visualized at this time. The round ligament on the right side of the uterus was visualized. The right fallopian tube and ovary were visualized and appeared to be normal. At this time, the Harris O was removed. The peritoneal incision was extended superiorly. Dr. Potter was called in to assist. The O'Starr-O'Say retractor that was originally placed, limited visualization was noted, and decision was made to place the Bookwalter. The Bookwalter was placed in the normal fashion with the lateral sidewall retractors , a bladder blade, and the bowel was packed up and the anterior retractor placed. At this time, the adnexal mass could be visualized better. Adhesions to the anterior top of the uterus were taken down until the mesosalpinx could be visualized. The mesosalpinx was then serially doubly clamped and cut and suture ligated with 2.0 Vicryl with Evangelina stitch . There was a vascular bleeder noted that was grasped with a right angle clamp and suture ligated with 3.o chromic. Hemostasis was noted at this point. The infundibulopelvic ligament was identified and doubly clamped and cut and suture ligated with 2.0 Vicryl using a Evangelina Stitch. Again there was some vascular bleeding noted which was grasped with a right angle clamp and suture ligated with 3.0 chromic. Excellent hemostasis was noted. The mass was removed from the pelvis and sent to Pathology. Thorough irrigation, suction of the pelvis and inspection was performed. Excellent hemostasis of the infundibulopelvic ligament and ovarian vasculature was noted. At this time, Dr. Solano scrubbed in and performed an exploratory laparotomy and lysis of adhesions of which he will dictate his part of the surgery. After Dr. Solano had finished with the exploratory laparotomy and lysis of adhesions, attention was then turned again to the pelvis where thorough irrigation was performed. Again, excellent hemostasis was noted and decision was made to conclude the procedure. Peritoneum was closed with 3-0 Monocryl in a running locked fashion. The fascia was closed with 0 Vicryl in a running fashion. The incision was then irrigated and hemostasis was noted. Subcutaneous layer was closed with 2-0 plain gut in a running fashion. The skin was closed with reyna. The laparoscopy ports were then closed with 0 Vicryl and Dermabond and attention was turned to the hysteroscopic portion of the case. The heavy weighted speculum was placed back into the vagina and the Omalley dilator was removed from the cervix. The hysteroscope was inserted into the uterus which had a normal contour to the interior cavity. [place] were visualized. There was a mild thickening of endometrium for a postmenopausal patient and no other abnormalities noted. The hysteroscope was removed and the small curet was inserted into the uterus and curettage was performed, receiving adequate sample. Decision was made to conclude the case at this time. The single-tooth tenaculum was removed. Silver nitrate was applied to the tenaculum sites. Excellent hemostasis was noted. All instruments were removed from the vagina. Sponge, lap and needle counts were correct x2. Patient was taken to the recovery room in stable condition. JACQUELYN
== END 2017-05-15 11:05 | disposition home or self-care (01) | DRG 742 ==
LOC: SRG 15:45 → ED 15:45 → SRG 19:45
PROVIDERS: ADMIT Obstetrics & Gynecology; ATTEND Obstetrics & Gynecology